=== PATIENT | male | born 1970 | race Caucasian/White ===

== ENCOUNTER 2016-09-08 19:22 | Emergency (ER) | payer BC, OTHER, SELFPAY ==
[~2016-09-08 19:22] MED LIST: Iopamidol 370 76% 100 ML VIAL ONE; Sodium Chloride 0.9% 1,000 ML BAG ONE
[2016-09-08] MEDS ORDERED: Fentanyl 100 MCG/2 ML VIAL ONE (19:34)
[2016-09-08 19:44] LABS: #Eosinphils 0.1 thou/uL (0.0-0.7); #Lymphocytes 5.2 thou/uL (1.20-3.40); #Monocytes 0.6 thou/uL (0.11-0.59); %Basophils 0.5 % (0.0-1.0); %Eosinophils 0.6 % (0.0-10.0); %Lymphocytes 58.2 % (21.0-51.0); %Monocytes 6.8 % (0.0-10.0); %Neutrophils 33.9 % (42.0-75.0); Hemoglobin 14.4 g/dL (14.0-18.0); Mean Corpuscular HGB CONC 34.5 g/dL (32.0-36.0); Mean Corpuscular Hemoglobin 32.1 pg (27.0-31.0); Mean Platelet Volume 7.4 fL (7.4-10.4); Platelet Count 270 thou/uL (130-400); RBC Distribution Width 11.7 % (11.5-14.5)
[2016-09-08 19:55] LABS: ALT (SGPT) 44 U/L (0-55); AST (SGOT) 28 U/L (5-34); Albumin 4.3 g/dL (3.5-5.0); Alkaline Phosphatase 81 U/L (40-150); Anion Gap 16 mmol/L (10-20); BUN (Urea Nitrogen) 14 mg/dL (8.9-20.6); Bilirubin, Total 0.9 mg/dL (0.2-1.2); Calc. Creatinine Clearance 0 mL/min (70-130); Carbon Dioxide 23 mmol/L (22-29); Chloride 104 mmol/L (98-107); Estimated GFR-MDRD 75; Globulin 2.9 g/dL (2.4-3.5); Glucose 129 mg/dL (70-105); Potassium 3.3 mmol/L (3.5-5.1); Protein, Total 7.2 g/dL (6.0-8.3); Sodium 140 mmol/L (136-145)
[2016-09-08 19:57] LABS: CKMB 1.4 ng/mL (0-6.6); Troponin I Less than 0.010 ng/mL (< 0.028)
--- NOTE | 2016-09-08 21:56 | CT ---
CT THORAX WITH CONTRAST CT ABDOMEN WITH CONTRAST CT PELVIS WITH CONTRAST: (trauma protocol) HISTORY: 44-year-old male status post-traumatic crush injury to the chest, abdomen, and pelvis. Dr. Salas reported the findings, especially the shattered grade 5 splenic laceration, and the small le ft pneumothorax and minimally displaced rib fractures, to Dr. Reveles at 8:12 p.m. on 09-08-16. TECHNIQUE: IV administration of iodinated contrast media. No oral contrast media. Single phase scans of thorax, abdomen, and pelvis. Sagittal reconstructions of thoracic and lumbar spine. FINDINGS: Thoracic and lumbar spine: There is no acute compression fracture. Thorax: There is a small, approximately 5-10% left sided pneumothorax at the nondependent anterior inferior portion of the left hemithorax (Axial image 42 of 51, series 3). There is a nondisplaced acute fract ure of the posterior aspect of the left first rib. There is a mildly displaced, mildly comminuted fr acture of the posterolateral aspect of left second rib. There is a comminuted, mildly displaced frac ture of the lateral aspect of the contralateral right first rib. There are small foci of subcutaneou s emphysema in the bilateral upper medial chest, dissecting into the neck. These are probably relate d to the rib fractures. The lungs are clear. There is no thoracic aortic aneurysm or dissection. No mediastinal hematoma. No pleural effusion. Small sliding hiatal hernia. No fracture of the sternum. Abdomen: There are extensive, very severe lacerations of the spleen, with most of the spleen being fragmented into innumerable tiny fragments. There is active extravasation of IV contrast material into a large left perisplenic hematoma (Axial image 44 or 132, Series 2). There is a 3 x 2 x 2 cm region of high contrast density in the far left aspect of the liver, in hepa tic segment 2 or 3. It is uncertain whether this represents an acutely bleeding liver laceration of a JOANNA. There is a small, round, 1 cm such focus of such very high density in the far inferior aspec t of the right lobe of the liver in hepatic segment 6, with the same differential diagnosis. The abdominal aorta, bilateral kidneys, pancreas, and adrenals are intact. No small bowel dilatation . Pelvis: There is a moderate volume of free fluid within the pelvic cavity, consistent with blood (hemoperito neum). No fracture. IMPRESSION: 1. Severe grade 5 splenic laceration (shattered spleen), with active arterial hemorrhaging; and pat splenic hematoma. 2. Associated moderate amount of hemoperitoneum with blood collecting in the dependent portion of th e pelvic cavity. 3. Highly enhancing small focal lesions in the left lobe and right lobe of the liver. Exact etiology is uncertain. These could represent THADs. They are less likely to represent acute lacerations, al though that is not excluded. 4. Small left pneumothorax. 5. Minimally displaced and nondisplaced fractures, involving left first and second ribs, and right f irst rib. LINDSAY Rojas POS: YVROSE
== END 2016-09-08 20:47 | disposition short-term general hospital (02) ==
LOC: MADERS 19:22
DX: S36.032A Major laceration of spleen, initial encounter (principal); J93.83 Other pneumothorax; V49.9XXA Car occupant (driver) (passenger) injured in unspecified traffic accident, initial encounter; Y99.0 Civilian activity done for income or pay
CPT/HCPCS: 36430; 71260; 74177; 80053; 82553; 84484; 85025; 86850; 86900; 86901; 93005; 96361; 96374; 99292; J3010; J7050; P9016

== ENCOUNTER 2017-02-14 02:00 | Emergency (ER) | payer BC ==
[2017-02-14] MEDS ORDERED: Ondansetron HCl/PF 4 MG/2 ML Vial ONE (02:29)
[2017-02-14] MEDS ORDERED: Ketorolac Tromethamine 30 MG/ML VIAL ONE (02:29)
[2017-02-14 02:56] LABS: ALT (SGPT) 40 U/L (8-55); AST (SGOT) 20 U/L (5-34); Albumin 4.2 g/dL (3.5-5.0); Alkaline Phosphatase 92 U/L (40-150); Anion Gap 12 mmol/L (10-20); BUN (Urea Nitrogen) 22 mg/dL (8.9-20.6); Bilirubin, Total 0.7 mg/dL (0.2-1.2); Calc. Creatinine Clearance 0 mL/min (70-130); Calcium 9.2 mg/dL (7.8-10.44); Carbon Dioxide 28 mmol/L (22-29); Chloride 103 mmol/L (98-107); Estimated GFR-MDRD 76; Globulin 3.2 g/dL (2.4-3.5); Glucose 124 mg/dL (70-105); Lipase 10 U/L (8-78); Protein, Total 7.4 g/dL (6.0-8.3); Sodium 139 mmol/L (136-145)
[2017-02-14 02:58] LABS: #Basophils 0.1 thou/uL (0.0-0.2); #Eosinphils 0.1 thou/uL (0.0-0.7); #Neutrophils 7.4 thou/uL (1.40-6.50); %Basophils 0.7 % (0.0-1.0); %Eosinophils 0.4 % (0.0-10.0); %Lymphocytes 31.9 % (21.0-51.0); %Monocytes 7.8 % (0.0-10.0); %Neutrophils 59.1 % (42.0-75.0); Hemoglobin 14.3 g/dL (14.0-18.0); Mean Corpuscular HGB CONC 34.2 g/dL (32.0-36.0); Mean Corpuscular Hemoglobin 32.5 pg (27.0-31.0); Mean Platelet Volume 8.3 fL (7.4-10.4); Platelet Count 357 thou/uL (130-400); RBC Distribution Width 11.9 % (11.5-14.5); Red Blood Cell (RBC) Count 4.41 mill/uL (4.70-6.10); White Blood Cell (WBC) Count 12.6 thou/uL (4.8-10.8)
[2017-02-14 04:20] LABS: Bilirubin Negative (Negative); Blood, Urine Large (Negative); Clarity Turbid (Clear); Glucose, Urine (Dipstick) Negative (Negative); Leukocyte Negative (Negative); Nitrite Negative (Negative); Protein, Urine (Dipstick) 100 mg/dL (Neg-Trace); Urobilinogen 0.2 mg/dL (0.2-1.0)
[2017-02-14 04:35] LABS: Bacteria/HPF 1+ HPF (None Seen); RBC/HPF GREATER THAN 50-TNTC HPF (0-3)
[2017-02-14] MEDS ORDERED: Sodium Chloride 0.9% 1,000 ML BAG ONE (07:43)
--- NOTE | 2017-02-14 08:37 | CT ---
PRELIMINARY REPORT/[facility]/EMERGENCY AFTER HOURS PROCEDURE: EXAM: CT Abdomen and Pelvis Without Intravenous Contrast CLINICAL HISTORY: 46 years old, male; Pain; Abdominal pain; Acute; Patient HX: HX of kidney stones TECHNIQUE: Axial computed tomography images of the abdomen and pelvis without intravenous contrast. Coronal reformatted images were created and reviewed. COMPARISON: No relevant prior studies available. FINDINGS: Lower thorax: No acute findings. ABDOMEN: Liver: 2 cm low attenuation lesion laterally in the left hepatic lobe more dense than a simple cyst, nonspecific. Couple smaller low attenuation lesions inferiorly in the right lobe and subcentimeter cystic-appearing lesion more medially in the left lobe. Gallbladder and bile ducts: Unremarkable. Pancreas: Normal. Spleen: Atrophic or absent with small splenic remnant. Adrenals: Normal. Kidneys and ureters: 4-5 mm stone in the distal right ureter a couple of centimeters proximal to the UVJ resulting in mild hydroureteronephrosis and perinephric fat stranding. No other urolithiasis. Unremarkable left kidney. Stomach and bowel: Unremarkable. No obstruction. Appendix: No findings to suggest acute appendicitis. PELVIS: Bladder: Unremarkable. Reproductive: Unremarkable. ABDOMEN and PELVIS: Intraperitoneal space: No free air. No significant fluid collection. Bones/joints: Unremarkable. No acute fracture. Soft tissues: Postsurgical changes in the ventral abdominal wall. Vasculature: Unremarkable. Lymph nodes: Unremarkable. No enlarged lymph nodes. IMPRESSION: Distal right ureteral stone resulting in mild hydronephrosis. Thank you for allowing us to participate in the care of your patient. Dictated and Authenticated by: Hayden Martinez MD 02/14/2017 2:54 AM Central Time ([place] \T\ [place]) FINAL REPORT CT ABDOMEN AND PELVIS WITHOUT IV CONTRAST: I agree with the preliminary report given by Dr. Hayden Martinez of [facility]. POS: OFF
== END 2017-02-14 03:30 | disposition home or self-care (01) ==
LOC: MADERS 02:00
DX: N13.2 Hydronephrosis with renal and ureteral calculous obstruction (principal)
CPT/HCPCS: 36415; 74176; 80053; 81003; 81015; 83690; 85025; 87086; J1885; J2405

== ENCOUNTER 2017-02-14 08:34 | Emergency (ER) | payer BC ==
[2017-02-14] MEDS ORDERED: Ketorolac Tromethamine 60 MG/2 ML VIAL ONE (08:52)
[2017-02-14] MEDS ORDERED: Tamsulosin HCl 0.4 MG CAP ONE (08:52)
== END 2017-02-14 09:10 | disposition home or self-care (01) ==
LOC: MADERS 08:34
DX: N20.1 Calculus of ureter (principal)
CPT/HCPCS: 36415; 74176; 80053; 81003; 81015; 83690; 85025; 87086; 96361; 96372; 96374; 96375; J1885; J2405; J7050

== ENCOUNTER 2019-08-24 14:31 | Emergency (ER) | payer BC, OTHER ==
[2019-08-24] MEDS ORDERED: Erythromycin Base 0.5% Ophth Oint 3.5 gm Tube ONE (15:23)
== END 2019-08-24 15:22 | disposition home or self-care (01) ==
LOC: MADERS 14:31
DX: T15.02XA Foreign body in cornea, left eye, initial encounter (principal)
CPT/HCPCS: 99283

== ENCOUNTER 2025-03-08 10:38 | Outpatient (CLI) | payer BC | END 2025-03-08 10:39 | disposition home or self-care (01) | LOC: MADLAB 10:38 | PROVIDERS: ATTEND Registered Nurse | DX: R07.89 Other chest pain (principal); S22.31XA Fracture of one rib, right side, initial encounter for closed fracture ==